=== PATIENT | male | born 1975 | race Caucasian/White ===

== ENCOUNTER 2016-10-09 12:24 | Emergency (ER) | payer BC ==
[2016-10-09 12:42] VITALS: BP 175/101; RESP 20; TEMP 98
[2016-10-09] MEDS ORDERED: IPRATROPIUM-ALBUTEROL 3 ML NEB INHALATION STA (14:14)
--- NOTE | 2016-10-09 14:21 | ED ---
URI HPI - General Chief Complaint: Upper Respiratory Infection Stated Complaint: Diff breathing Time Seen by Provider: 10/09/16 14:09 Source: patient, RN notes reviewed Mode of arrival: ambulatory Limitations: no limitations - History of Present Illness Initial Comments: 40-year-old male presents to the emergency department with a chief complaint of cough and shortness of breath. Patient states last about 5 days he's had this cough and shortness of breath. Patient states he comes wheeze and laterally. Patient denies any sputum production with the cough. Patient has a runny nose. Patient states his throat hurts a little bit of cough. Patient denies history of smoking. Patient states she is tried DayQuil better so he was concerned. Patient denies any high fevers with this. Patient to surgery currently having any other symptoms.Patient denies any recent fever, chills, chest pain, back pain, abdominal pain, nausea vomiting, numbness or tingling, dysuria or hematuria, constipation or diarrhea, headaches or visual changes, or any other current symptoms. - Related Data Home Medications Medication Instructions Recorded Confirmed D-Methorphan/PE/Acetaminophen 2 cap PO Q6H PRN 10/09/16 10/09/16 [[facility] Dayquil Liquicaps] Previous Rx's Medication Instructions Recorded Albuterol Inhaler [Ventolin Hfa 1 - 2 puff INHALATION Q4-6H PRN #1 10/09/16 Inhaler] inhaler Azithromycin [Zithromax] 250 mg PO DIRECTED #6 tab 10/09/16 predniSONE 50 mg PO DAILY #5 tab 10/09/16 Allergies Allergy/AdvReac Type Severity Reaction Status Date / Time No Known Allergies Allergy Verified 10/09/16 14:27 Review of Systems ROS Statement: Those systems with pertinent positive or pertinent negative responses have been documented in the HPI. ROS Other: All systems not noted in ROS Statement are negative. Past Medical History Additional Past Medical History / Comment(s): kidney stones History of Any Multi-Drug Resistant Organisms: None Reported Past Surgical History: No Surgical Hx Reported Past Psychological History: No Psychological Hx Reported Smoking Status: Former smoker Past Alcohol Use History: None Reported, Occasional Past Drug Use History: None Reported General Exam - General Exam Comments Initial Comments: General: The patient is awake and alert, in no distress, and does not appear acutely ill. Eye: Pupils are equal, round. Ears, nose, mouth and throat: There are moist mucous membranes. Neck: The neck is supple, there is no tenderness. Cardiovascular: There is a regular rate and rhythm. No murmur, rub or gallop is appreciated. Respiratory: Lungs are clear to auscultation, respirations are non-labored, breath sounds are equal. wheezing, no stridor, rales, or rhonchi. Back: There is no tenderness to palpation in the midline. There is no obvious deformity. No rashes noted. Musculoskeletal: Normal ROM, no tenderness, There is no pedal edema. There is no calf tenderness or swelling. Sensation intact. Pulses equal bilaterally 2+. Neurological: CN II-XII intact, There are no obvious motor or sensory deficits. Coordination appears grossly intact. Speech is normal. Skin: Skin is warm and dry and no rashes or lesions are noted. Psychiatric: Cooperative, appropriate mood & affect, normal judgment. Limitations: no limitations Course Vital Signs 10/09/16 10/09/16 10/09/16 12:39 14:37 14:40 Temperature 98 F Pulse Rate 86 82 Respiratory 20 20 Rate Blood Pressure 175/101 O2 Sat by Pulse 97 Oximetry 10/09/16 14:50 Temperature Pulse Rate 82 Respiratory Rate Blood Pressure O2 Sat by Pulse Oximetry Medical Decision Making - Medical Decision Making 40-year-old male presents to the emergency room chief complaint cough and shortness of breath. Patient does have wheezing on exam. Patient's x-rays reviewed there is concern for possible consolidation. The patient does appear to have bronchitis. This time was started on inhaler and steroids. Discussed with her parents and follow-up. Patient stated that he understood all discharge. - Radiology Data Radiology results: image reviewed Interpreted by me: chest xray: 2 view: concern for consolidation in LLL. ossesous structures intact. Waiting official radiology read Disposition Clinical Impression: Acute bronchitis, Left lower lobe pneumonia Disposition: HOME SELF-CARE Condition: Stable Instructions: Acute Bronchitis (ED) Additional Instructions: Please use medication as discussed. Please follow up with family doctor if symptoms have not improved over the next two days. Please return to the emergency room if your symptoms increase or worsen or for any other concerns. Prescriptions: Albuterol Inhaler [Ventolin Hfa Inhaler] 1 - 2 puff INHALATION Q4-6H PRN #1 inhaler PRN Reason: Cough Azithromycin [Zithromax] 250 mg PO DIRECTED #6 tab predniSONE 50 mg PO DAILY #5 tab Referrals: Cas Hough MD [Primary Care Provider] - 1-2 days Time of Disposition: 16:02
[2016-10-09 14:51] VITALS: PULSE 82
--- NOTE | 2016-10-12 11:34 | XR ---
EXAMINATION TYPE: XR chest 2V DATE OF EXAM: 10/09/2016 2:23 PM COMPARISON: Prior chest x-ray second of December 2011 HISTORY: Cough TECHNIQUE: Frontal and lateral views of the chest are obtained. FINDINGS: Patient is rotated. The heart appears enlarged. No pneumonia, pneumothorax, or pleural eff usion. There is bronchial wall thickening. Pulmonary vascularity and filomena not significantly changed. IMPRESSION: Findings could be at least in part technical, cardiomegaly not excluded, consider follow -up. Exam submitted for interpretation on 12 October 2016. Report called to emergency department foll ow-up nurse at the time of interpretation exam on 12 October 2016 at 1130 hours
== END 2016-10-09 16:09 | disposition home or self-care (01) ==
LOC: EC 12:24
DX: J18.9 Pneumonia, unspecified organism (principal); J20.9 Acute bronchitis, unspecified; Z87.891 Personal history of nicotine dependence
CPT/HCPCS: 71020; 94640; 99283

== ENCOUNTER → 2019-12-08 | Outpatient (CLI) | payer BC ==
--- NOTE | 2019-12-09 05:17 | MR ---
EXAMINATION TYPE: MR lumbar spine wo/w con DATE OF EXAM: 12/08/2019 COMPARISON: NONE HISTORY: 44-year-old male radiculopathy, pain travels down right leg Technique: Multiplanar, multisequence images of the lumbar spine were obtained before and after admin istration of 7 mL intravenous Gadavist gadolinium contrast. FINDINGS: Vertebral body heights are preserved. There is some prominent red marrow within the seen with obesity, smoking, anemia, chronic disease. Grade 1, nearly grade 2 anterolisthesis at L5-S1 with associated moderate degenerative disc disease w ith desiccated, mildly narrowed, the bulging disc. This may be secondary to underlying L5 pars defect s. Remaining alignment is maintained. Additional mild to moderate degenerative disc disease at L4-L5 desiccated, narrowed, and bulging disc . Facet arthropathy lower lumbar spine. There is a component of mild congenital spinal canal stenosis mid lumbar spine with AP canal dimensio n of 1.1 cm. Conus medullaris is normal. No prevertebral or paravertebral soft tissue abnormality seen. From T12 through L4 levels, no significant spinal canal or foraminal stenosis. At L4-L5, there is bulging disc with facet arthropathy. Minimal bilateral inferior neural foraminal n arrowing. No significant spinal canal stenosis. At L5-S1, suspect bilateral L5 pars defects with facet arthropathy. Grade 1, nearly grade 2 anterolis thesis with uncovering of the posterior intervertebral disc and disc bulging. Changes result in a sev ere right neuroforaminal stenosis likely with impingement of the exiting L5 nerve root. Mild left manju roforaminal stenosis. No spinal canal stenosis. No abnormal enhancement within the spinal canal. IMPRESSION: 1. Moderate degenerative disc disease L4-L5 and L5-S1 with facet arthropathy. Underlying component of mild congenital spinal canal stenosis. 2. Grade 1, nearly grade 2 anterolisthesis at L5-S1 likely secondary to underlying L5 pars defects. I f confirmation is desired prior to any intervention, CT can be performed for more detailed assessment of the bony anatomy. 3. This results in a severe right-sided neural foraminal stenosis likely with impingement of the exit ing right L5 nerve root at this level. 4. No significant spinal canal stenosis.
== END | disposition home or self-care (01) ==
LOC: RADMRIMAIN 13:21
PROVIDERS: ATTEND Family Medicine
DX: M48.061 Spinal stenosis, lumbar region without neurogenic claudication (principal); M43.17 Spondylolisthesis, lumbosacral region; M51.16 Intervertebral disc disorders with radiculopathy, lumbar region; M51.37 Other intervertebral disc degeneration, lumbosacral region; M47.26 Other spondylosis with radiculopathy, lumbar region; M47.817 Spondylosis without myelopathy or radiculopathy, lumbosacral region
CPT/HCPCS: 72158

== ENCOUNTER 2021-05-10 16:04 | Emergency (ER) | payer BC ==
[2021-05-10 16:20] VITALS: TEMP 98.7
[2021-05-10] MEDS ORDERED: MORPHINE SULFATE 4 MG/ML SYRINGE IV STA (16:32)
[2021-05-10] MEDS ORDERED: methylPREDNISolone SOD SUCCI 125 MG/2 ML VIAL IM STA (16:32)
[2021-05-10] MEDS ORDERED: MORPHINE SULFATE 4 MG/ML SYRINGE IM STA (17:29)
--- NOTE | 2021-05-10 18:38 | XR ---
Result: History: Low back pain. Comparison: MR 12/08/2019. Technique: Frontal and lateral views of the lumbar spine. Findings: The bone mineralization is normal. Images of the lumbar spine demonstrate 5 lumbar-type vertebrae. There is no acute fracture. The jose tebral body heights are preserved throughout the imaged lumbar spine. There is moderate disc height n arrowing at L4-S1 with grade 1 anterolisthesis at L5-S1. Impression: Stable lumbar spondylosis with L5-S1 grade 1 spondylolisthesis. No acute osseous abnormality.
--- NOTE | 2021-05-10 18:43 | ED ---
General Adult HPI - General Chief complaint: Back Pain/Injury Stated complaint: Back Pain Time Seen by Provider: 05/10/21 16:28 Source: patient, RN notes reviewed Mode of arrival: wheelchair Limitations: no limitations - History of Present Illness Initial comments: Patient is a 45-year-old male that presents to the emergency department complaining of right sided lower back pain with radicular symptoms on the right leg. He notes that he is been using a walking cane to alleviate symptoms. He denied any injury trauma weird bending twisting lifting motions. He was in his pain was a 10 out of 10. He did not try any at home medications. He denied any other issues or complaint. He denied any chest pain shortness of breath headache nausea vomiting diarrhea constipation fever fatigue chills. - Related Data Home Medications Medication Instructions Recorded Confirmed D-Methorphan/PE/Acetaminophen 2 cap PO Q6H PRN 10/09/16 10/09/16 [Vicks Dayquil Liquicaps] Previous Rx's Medication Instructions Recorded Albuterol Inhaler (Mhu) [Ventolin 1 - 2 puff INHALATION Q4-6H PRN #1 10/09/16 Hfa Inhaler (Mhu)] inhaler Azithromycin [Zithromax] 250 mg PO DIRECTED #6 tab 10/09/16 predniSONE 50 mg PO DAILY #5 tab 10/09/16 Allergies Allergy/AdvReac Type Severity Reaction Status Date / Time No Known Allergies Allergy Verified 05/10/21 16:20 Review of Systems ROS Statement: Those systems with pertinent positive or pertinent negative responses have been documented in the HPI. ROS Other: All systems not noted in ROS Statement are negative. Past Medical History Additional Past Medical History / Comment(s): kidney stones, back pain. History of Any Multi-Drug Resistant Organisms: None Reported Past Surgical History: No Surgical Hx Reported Past Psychological History: No Psychological Hx Reported Smoking Status: Never smoker Past Alcohol Use History: None Reported, Occasional Past Drug Use History: None Reported General Exam Limitations: no limitations General appearance: alert, in no apparent distress Head exam: Present: atraumatic, normocephalic, normal inspection Eye exam: Present: normal appearance, PERRL, EOMI. Absent: scleral icterus, conjunctival injection, periorbital swelling Neck exam: Present: normal inspection Respiratory exam: Present: normal lung sounds bilaterally. Absent: respiratory distress, wheezes, rales, rhonchi, stridor Cardiovascular Exam: Present: regular rate, normal rhythm, normal heart sounds. Absent: systolic murmur, diastolic murmur, rubs, gallop, clicks GI/Abdominal exam: Present: soft, normal bowel sounds. Absent: distended, tenderness, guarding, rebound, rigid Extremities exam: Present: normal inspection, full ROM, normal capillary refill. Absent: tenderness, pedal edema, joint swelling, calf tenderness Back exam: Present: normal inspection, tenderness (Right lower back over the SI) Neurological exam: Present: alert, oriented X3 Psychiatric exam: Present: normal affect, normal mood Skin exam: Present: warm, dry, intact, normal color. Absent: rash Course Vital Signs 05/10/21 16:16 Temperature 98.7 F Pulse Rate 102 H Respiratory 20 Rate Blood Pressure 177/109 O2 Sat by Pulse 97 Oximetry Medical Decision Making - Medical Decision Making 45 she'll male complaining of right lower back pain with radicular symptoms on the right leg. X-ray of the lumbar spine ordered. 125 mg - Radiology Data Radiology results: report reviewed, image reviewed X-ray lumbar spine: Stable lumbar spondylosis with L5-S1 grade 1 spondylolisthesis. No acute osseous abnormality. Disposition Clinical Impression: Sciatica Disposition: HOME SELF-CARE Condition: Stable Instructions (If sedation given, give patient instructions): Acute Low Back Pain (ED) Additional Instructions: Please return to the Emergency Department if symptoms worsen or any other concerns. Follow-up primary care in 1-2 days. Avoid any strenuous activity or exercise for the next several days. Is patient prescribed a controlled substance at d/c from ED?: No Referrals: Cas Hough MD [Primary Care Provider] - 1-2 days Time of Disposition: 18:43
[2021-05-10 19:35] VITALS: BP 158/90; PULSE 86; RESP 18
== END 2021-05-10 19:26 | disposition home or self-care (01) ==
LOC: EC 16:04
DX: M54.41 Lumbago with sciatica, right side (principal)
CPT/HCPCS: 99283; 96372; 72100; J2270; J2930

== ENCOUNTER 2021-11-18 16:44 | Emergency (ER) | payer BC ==
[2021-11-18] MEDS ORDERED: ASPIRIN 81 MG PO STA (19:08)
--- NOTE | 2021-11-18 19:39 | XR ---
EXAMINATION TYPE: XR chest 2V DATE OF EXAM: 11/18/2021 COMPARISON: 10/09/2016 HISTORY: Chest pain TECHNIQUE: 2 views FINDINGS: Heart and mediastinum are normal. Lungs are clear. Diaphragm is normal. Bony thorax is inta ct. IMPRESSION: Normal chest. No change.
[2021-11-18 19:40] LABS: Basophils # (A) 0.1 k/uL (0-0.2); Basophils % (A) 1 %; Eosinophils # (A) 0.2 k/uL (0-0.7); Eosinophils % (A) 2 %; HCT 46.5 % (39.0-53.0); HGB 15.9 gm/dL (13.0-17.5); Lymphocytes # (A) 2.9 k/uL (1.0-4.8); Lymphocytes % (A) 34 %; MCH 32.1 pg (25.0-35.0); MCHC 34.3 g/dL (31.0-37.0); MCV 93.5 fL (80.0-100.0); Mean Platelet Volume 6.9; Monocytes # (A) 0.4 k/uL (0-1.0); Monocytes % (A) 5 %; Neutrophils # (A) 4.9 k/uL (1.3-7.7); Neutrophils % (A) 57 %; Platelet Count 227 k/uL (150-450); RBC 4.97 m/uL (4.30-5.90); RDW 12.7 % (11.5-15.5); WBC 8.6 k/uL (3.8-10.6)
[2021-11-18 19:51] LABS: ALT 29 U/L (4-49); AST 22 U/L (17-59); African American GFR (CKD) >90 (>60 ml/min/1.73 sqM); Albumin 4.6 g/dL (3.5-5.0); Alkaline Phosphatase 87 U/L (38-126); Anion Gap 11 mmol/L; Blood Urea Nitrogen 14 mg/dL (9-20); Calcium 9.3 mg/dL (8.4-10.2); Carbon Dioxide 19 mmol/L (22-30); Chloride 109 mmol/L (98-107); Glucose 131 mg/dL (74-99); Non-African American GFR(CKD) >90 (>60 ml/min/1.73 sqM); Potassium 4.4 mmol/L (3.5-5.1); Sodium 139 mmol/L (137-145); Total Bilirubin 0.4 mg/dL (0.2-1.3); Total Protein 7.8 g/dL (6.3-8.2)
[2021-11-18 20:09] VITALS: RESP 18
[2021-11-18 20:11] LABS: INR 0.9 (<1.2); Partial Thromboplastin Time 22.4 sec (22.0-30.0); Prothrombin Time 9.9 sec (9.0-12.0)
--- NOTE | 2021-11-18 20:23 | CT ---
EXAMINATION TYPE: CT cervical spine wo con DATE OF EXAM: 11/18/2021 COMPARISON: None HISTORY: pain in right arm CT DLP: 2290.7 mGycm Automated exposure control for dose reduction was used. Images obtained from the skull base to T1 vertebra without contrast. Cervical Normal alignment. Disc spaces are fairly normal. There is no compression fracture. Facet joints are i ntact. There is no significant spur formation. The skull base is intact. There is mucosal thickening in the mastoid sinuses. Prevertebral soft tissues are intact. There is posterior endplate spur format ion at C6-7 with some narrowing of the spinal canal. IMPRESSION: There are some degenerative spurring with mild relative spinal stenosis at C6-7. No fracture. Bilater al mastoiditis.
--- NOTE | 2021-11-18 20:29 | CT ---
EXAMINATION TYPE: CT thoracic spine wo con DATE OF EXAM: 11/18/2021 COMPARISON: None HISTORY: pain in right arm CT DLP: 2290.7 mGycm Automated exposure control for dose reduction was used. Images obtained from the level of T1-T12 without contrast. Thoracic vertebra have normal spacing and alignment. Posterior elements are intact. There is no compr ession fracture. There is no thoracic paraspinal mass. I see no bony destructive process. Thoracic fa cet joints appear intact. IMPRESSION: Negative CT scan of the thoracic spine.
[2021-11-18 21:53] VITALS: BP 153/93
[2021-11-18 21:56] VITALS: PULSE 79; TEMP 97.7
--- NOTE | 2021-11-18 22:03 | ED ---
General Adult HPI - General Chief complaint: Recheck/Abnormal Lab/Rx Stated complaint: Right arm numbness Time Seen by Provider: 11/18/21 18:26 Source: patient, RN notes reviewed, old records reviewed Mode of arrival: ambulatory Limitations: no limitations - History of Present Illness Initial comments: Patient is a 45-year-old male with past medical history remarkable for lumbar spine surgery, chronic back pain who presents from a department with a one-week history of worsening radicular like symptoms in his right arm. States he has numbness when he lays down or turns a certain way it radiates from the right side of his neck down his right arm to his fingertips. Denies any weakness. Does endorse mild shortness of breath. Denies any cough, fevers, chills. Denies any chest pain. All symptoms have been ongoing for a week. He is due for an MRI next week, but became concerned as these symptoms are new for him. Denies any trauma, chronic neck injuries. Denies any abdominal pain, nausea, vomiting. His no other acute complaints at this time. Denies any recent weight loss. Denies any history of cancer. Patient does use tobacco. No history of COPD or asthma.Patient was evaluated when he was placed in a room. - Related Data Home Medications Medication Instructions Recorded Confirmed No Known Home Medications 11/18/21 11/18/21 Allergies Allergy/AdvReac Type Severity Reaction Status Date / Time No Known Allergies Allergy Verified 11/18/21 17:06 Review of Systems ROS Statement: Those systems with pertinent positive or pertinent negative responses have been documented in the HPI. Review of Systems: CONST: Denies fever EYES: Denies blurry vision ENT: Denies nasal congestion C/V: Denies Chest pain RESP: Endorses occasional shortness of breath. GI: Denies abdominal pain : Denies dysuria SKIN: Denies rash. MSK: Denies joint pain. NEURO: endorses right arm numbness ROS Other: All systems not noted in ROS Statement are negative. Past Medical History Additional Past Medical History / Comment(s): kidney stones, back pain. History of Any Multi-Drug Resistant Organisms: None Reported Past Surgical History: No Surgical Hx Reported Past Psychological History: No Psychological Hx Reported Smoking Status: Current every day smoker Past Alcohol Use History: None Reported, Occasional Past Drug Use History: Marijuana General Exam - General Exam Comments Initial Comments: General: Appears in no acute distress. HEAD: Normal with no signs of head trauma. EYES: PERRLA, EOMI, conjunctiva normal, no discharge. ENT: Hearing grossly intact, normal oropharynx. RESPIRATORY: Clear breath sounds bilaterally. No wheezes, rales, or rhonchi. C/V: Regular rate and rhythm. S1 and S2 auscultated, no edema, peripheral pulses 2+ and intact throughout ABD: Abd is soft, nontender, nondistended EXT: Normal range of motion, no obvious deformity SKIN: No rashes or lesions observed on exposed skin. NEURO: Alert and oriented 4. Cranial nerves II through XII are intact. No focal sensory strength deficits. NIH is 0. I am unable to elicit the numbness in the right arm. 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 He is also endorsing intermittent nonspecific shortness of breath at this time as well. No other symptoms. We will obtain a cardiopulmonary workup as well as CT imaging of the neck and T-spine. He was in agreement this plan. He'll be administered aspirin. EKG showed no signs of acute ischemia. Chest x-ray revealed no acute cardiopulmonary process. Spinal imaging was remarkable for a normal thoracic spine CT. Cervical spine CT revealed degenerative spurring with spinal stenosis at C6 7. Laboratory studies are remarkable for a negative d-dimer, negative troponin. The remainder of the labs are unremarkable. Covid is negative. On reevaluation, patient remains relatively asymptomatic. We did discuss the wo rkup that we obtained. I believe it is safer to be discharged home as labs are within normal limits. I discussed his imaging and that the MRI next week should be done of the cervical spine as well. He was in agreement. He already has follow-up for his spine. Patient was in agreement for discharge home. I instructed the patient to follow up with their PCP in the next 3 days. I ex plained that the patient should return to the emergency department if they experience any worsening symptoms. Strict return precautions were discussed with the patient. The patient expressed understanding of these instructions. I answered all questions that the patient had. The patient was discharged home in good condition with their prescriptions and follow up information. - Lab Data Result diagrams: 11/18/21 19:33 11/18/21 19:33 Lab Results 11/18/21 11/18/21 11/18/21 Range/Units 17:13 19:33 19:33 WBC 8.6 (3.8-10.6) k/uL RBC 4.97 (4.30-5.90) m/uL Hgb 15.9 (13.0-17.5) gm/dL Hct 46.5 (39.0-53.0) % MCV 93.5 (80.0-100.0) fL MCH 32.1 (25.0-35.0) pg MCHC 34.3 (31.0-37.0) g/dL RDW 12.7 (11.5-15.5) % Plt Count 227 (150-450) k/uL MPV 6.9 Neutrophils % 57 % Lymphocytes % 34 % Monocytes % 5 % Eosinophils % 2 % Basophils % 1 % Neutrophils # 4.9 (1.3-7.7) k/uL Lymphocytes # 2.9 (1.0-4.8) k/uL Monocytes # 0.4 (0-1.0) k/uL Eosinophils # 0.2 (0-0.7) k/uL Basophils # 0.1 (0-0.2) k/uL PT 9.9 (9.0-12.0) sec INR 0.9 (<1.2) APTT 22.4 (22.0-30.0) sec D-Dimer 0.37 (<0.60) mg/L FEU Sodium (137-145) mmol/L Potassium (3.5-5.1) mmol/L Chloride (98-107) mmol/L Carbon Dioxide (22-30) mmol/L Anion Gap mmol/L BUN (9-20) mg/dL Creatinine (0.66-1.25) mg/dL Est GFR (CKD-EPI)AfAm (>60 ml/min/1.73 sqM) Est GFR (CKD-EPI)NonAf (>60 ml/min/1.73 sqM) Glucose (74-99) mg/dL Calcium (8.4-10.2) mg/dL Magnesium (1.6-2.3) mg/dL Total Bilirubin (0.2-1.3) mg/dL AST (17-59) U/L ALT (4-49) U/L Alkaline Phosphatase (38-126) U/L Troponin I (0.000-0.034) ng/mL Total Protein (6.3-8.2) g/dL Albumin (3.5-5.0) g/dL Coronavirus (PCR) Not Detected (Not Detectd) 11/18/21 11/18/21 Range/Units 19:33 19:33 WBC (3.8-10.6) k/uL RBC (4.30-5.90) m/uL Hgb (13.0-17.5) gm/dL Hct (39.0-53.0) % MCV (80.0-100.0) fL MCH (25.0-35.0) pg MCHC (31.0-37.0) g/dL RDW (11.5-15.5) % Plt Count (150-450) k/uL MPV Neutrophils % % Lymphocytes % % Monocytes % % Eosinophils % % Basophils % % Neutrophils # (1.3-7.7) k/uL Lymphocytes # (1.0-4.8) k/uL Monocytes # (0-1.0) k/uL Eosinophils # (0-0.7) k/uL Basophils # (0-0.2) k/uL PT (9.0-12.0) sec INR (<1.2) APTT (22.0-30.0) sec D-Dimer (<0.60) mg/L FEU Sodium 139 (137-145) mmol/L Potassium 4.4 (3.5-5.1) mmol/L Chloride 109 H (98-107) mmol/L Carbon Dioxide 19 L (22-30) mmol/L Anion Gap 11 mmol/L BUN 14 (9-20) mg/dL Creatinine 0.87 (0.66-1.25) mg/dL Est GFR (CKD-EPI)AfAm >90 (>60 ml/min/1.73 sqM) Est GFR (CKD-EPI)NonAf >90 (>60 ml/min/1.73 sqM) Glucose 131 H (74-99) mg/dL Calcium 9.3 (8.4-10.2) mg/dL Magnesium 2.0 (1.6-2.3) mg/dL Total Bilirubin 0.4 (0.2-1.3) mg/dL AST 22 (17-59) U/L ALT 29 (4-49) U/L Alkaline Phosphatase 87 (38-126) U/L Troponin I <0.012 (0.000-0.034) ng/mL Total Protein 7.8 (6.3-8.2) g/dL Albumin 4.6 (3.5-5.0) g/dL Coronavirus (PCR) (Not Detectd) - EKG Data -: EKG Interpreted by Me EKG Comments: 12-lead Electrocardiogram Interpretation Note EKG was reviewed and interpreted by myself. 12-lead ECG performed at 2001 is interpreted by me as revealing normal sinus rhythm at a rate of 80 beats per minute. [place] is normal. VA interval is 175 ms, QRS duration is 77 ms, QTc is 392 ms.. There were no ST or T wave abnormalities to suggest myocardial ischemia or injury. R wave progression across the precordium was satisfactory. By my interpretation this EKG is non-diagnostic for acute ischemia. Disposition Clinical Impression: Radiculopathy Disposition: HOME SELF-CARE Condition: Good Is patient prescribed a controlled substance at d/c from ED?: No Referrals: Cas Hough MD [Primary Care Provider] - 1-2 days
== END 2021-11-18 22:30 | disposition home or self-care (01) ==
LOC: EC 16:44
DX: M54.12 Radiculopathy, cervical region (principal); F17.200 Nicotine dependence, unspecified, uncomplicated; R06.02 Shortness of breath; Z20.822 Contact with and (suspected) exposure to COVID-19
CPT/HCPCS: 36415; 71046; 72125; 72128; 80053; 83735; 84484; 85025; 85379; 85610; 85730; 87635; 93005; 99284

== ENCOUNTER → 2022-01-30 | Outpatient (CLI) | payer OTHER ==
--- NOTE | 2022-01-30 09:58 | MR ---
MRI CERVICAL SPINE: CLINICAL HISTORY: Right arm numbness for 3 months. TECHNIQUE: Multiplanar, multisequence imaging of the cervical spine is performed without IV contrast. COMPARISON: None. FINDINGS: Sagittal images of the cervical spine show the craniocervical junction to remain within nor mal limits. The cervical and upper thoracic spinal cord is caliber and signal. Alignment is stable a nd straightened with grade 1 anterolisthesis C5 on C6 redemonstrated. The vertebral body and intrave rtebral disk heights are normal. Mild multilevel anterior and posterior spurring. The bone marrow si gnal intensity is within normal limits. Axial images show C2-C3 and C3-C4 levels to appear within normal limits. Axial images at C4-C5 level shows central disc protrusion mildly effacing the anterior thecal sac, pa tent bilateral neural foramina. Axial images at C5-C6 levels show spondylolisthesis and broad-based posterior disc protrusion effacin g the anterior thecal sac and causing moderate bilateral neural foraminal narrowing. Axial images at C6-C7 level shows broad-based posterior disc protrusion effaces the anterior thecal s ac up to ventral surface of spinal cord with additional focal right paracentral disc protrusion compo nent axial image 18 and causing advanced right and moderate left-sided neural foraminal narrowing. Axial images at C7-T1 level appear within normal limits. IMPRESSION: Multilevel degenerative changes in the cervical spine greatest at C5-C6 and C6-C7 levels as detailed above. C6-C7 level findings felt to account for patient's clinical symptoms.
--- NOTE | 2022-01-30 10:12 | CT ---
EXAMINATION TYPE: CT lumbar spine wo con DATE OF EXAM: 01/30/2022 COMPARISON: Plain film 05/10/2021 HISTORY: Lumbar fusion, Arthrodisis status CT DLP: 711 [id number] Automated exposure control for dose reduction was used. An unenhanced CT of the lumbar spine was performed. Bone and soft tissue window settings are submitt ed as well as coronal and sagittal reconstructions. FINDINGS: Patient is status post posterior lumbar fusion at L5-S1, intervertebral spacing block is present, ant erolisthesis grade 1 L5-S1 again noted, bilateral spondylolysis at L5. Loss of disc height present L4 -5 with associated spondylosis. Lumbar vertebral bodies show preserved height. Screws at L5 transgres ses the anterior cortex, close proximity to the common iliac veins, hardware artifact is present whic h somewhat limits evaluation. Appendicolith is thought to be present in the right lower quadrant. L1-L2: Normal disc space height. No disc herniation protrusion or central stenosis. No facet joint arthropathy. No evidence for foraminal encroachment. L2-L3: Normal disc space height. No disc herniation protrusion or central stenosis. No facet joint arthropathy. No evidence for foraminal encroachment. L3-L4: Normal disc space height. No disc herniation protrusion or central stenosis. No facet joint arthropathy. No evidence for foraminal encroachment. L4-L5: Posterior extension of endplate disc complex is mild. No significant foraminal encroachment or spinal stenosis. L5-S1: Postop changes are noted as described. Circumferential extension of endplates at L5 encroaches upon the foramina, no evident disc herniation. Apparent deviation of the thecal sac noted somewhat t owards the right on axial image #59 is indeterminate, right lateral margin of the thecal sac extends towards the right at this level. No evident spinal stenosis. IMPRESSION: Postop changes as described. Findings of the thecal sac noted at L5-S1 as described are indeterminate , poorly visualized on this noncontrast exam, there may be bilateral foraminal encroachment at L5-S1.
== END | disposition home or self-care (01) ==
LOC: RADMRIMAIN 06:18
PROVIDERS: ATTEND Neurological Surgery
DX: G95.9 Disease of spinal cord, unspecified (principal); Z98.1 Arthrodesis status
CPT/HCPCS: 72131; 72141